=== PATIENT | male | born 1940 ===

== ENCOUNTER 2017-06-26 09:34 | Outpatient (CLI) | payer OTHER | END 2017-06-26 16:11 | disposition home or self-care (01) | LOC: RAD 09:34 | DX: I10 Essential (primary) hypertension (principal) ==

== ENCOUNTER → 2021-01-21 | Emergency (ER) | payer OTHER ==
[~2021-01-21] VITALS: Ht 180.3 cm; Wt 88.5 kg
[~2021-01-21] MED LIST: [UNRECOGNIZED DRUG - OTHER]
== END | disposition left against medical advice (07) ==
LOC: ER 01:02
DX: R07.89 Other chest pain (principal)

== ENCOUNTER → 2022-05-07 12:23 | Outpatient (CLI) | payer OTHER | END | disposition home or self-care (01) | LOC: LAB 12:23 | PROVIDERS: ATTEND Urology | DX: R97.20 Elevated prostate specific antigen [PSA] (principal) ==

== ENCOUNTER 2022-06-07 07:10 | Outpatient (CLI) | payer OTHER | END 2022-06-07 11:03 | disposition home or self-care (01) | LOC: SONOGRAMA 07:10 | PROVIDERS: ATTEND Urology | DX: C61 Malignant neoplasm of prostate (principal); D29.1 Benign neoplasm of prostate; R97.20 Elevated prostate specific antigen [PSA] ==

== ENCOUNTER 2022-07-22 07:22 | Outpatient (CLI) | payer OTHER | END 2022-07-22 07:26 | disposition home or self-care (01) | LOC: TOM 07:22 | DX: C61 Malignant neoplasm of prostate (principal); R91.8 Other nonspecific abnormal finding of lung field | CPT/HCPCS: 71260; Q9965 ==

== ENCOUNTER 2022-10-15 07:27 | Outpatient (CLI) | payer OTHER | END 2022-10-15 07:35 | disposition home or self-care (01) | LOC: SONOGRAMA 07:27 | DX: C61 Malignant neoplasm of prostate (principal) ==

== ENCOUNTER 2022-10-31 07:35 | Outpatient (CLI) | payer OTHER | END 2022-10-31 07:40 | disposition home or self-care (01) | LOC: MRI 07:35 | PROVIDERS: ATTEND Psychiatry & Neurology Clinical Neurophysiology | DX: R51.9 Headache, unspecified (principal); C79.31 Secondary malignant neoplasm of brain | CPT/HCPCS: 70551 ==